=== PATIENT | male | born 1950 | race Caucasian/White ===

== ENCOUNTER 2018-02-26 09:13 | Emergency (ER) | payer OTHER, MEDICARE ==
[2018-02-26] MEDS ORDERED: SODIUM CHLORIDE 0.9% 500 ML INFUS.BAG IV ONE (10:15)
--- NOTE | 2018-02-26 10:15 | PDOC ---
History of Present Illness <Pauline Cruz Jose R - Last Filed: 02/26/18 12:45> - General History Source: Patient, Family Exam Limitations: No Limitations - History of Present Illness Initial Comments: 02/26/18 10:25 The patient is a 67 year old male, with a significant past medical history of hypertension, hyperlipidemia, and gout, who presents to the emergency department with a rash for approximately 10 days. The patient reports he initially broke out with a rash in his upper extremity, which resolved on its own 3 days later. However, about 1 week ago he developed a diffuse rash, which progressed to painful blisters. The patient reports associated joint swelling and pain. Patient states his joint pain is similar to his previous gout symptoms , but states he has not had this pain in a long time. Patient endorses weakness secondary to joint pain and states he has difficulty getting out of bed, which prompted his visit today. He reports the rash is painful and pruritic.Patient reports visiting his PCP, Dr. Lindo, who started him on Augmentin 3 days ago. Patient reports missing his Augmentin dose today. He reports subjective fevers and nasal congestion, but denies any associated chills, cough, headache, or dizziness. He denies any abdominal pain, nausea, or vomiting. He denies any chest pain, shortness of breath, diaphoresis, or palpitations. He denies any recent travel or sick contacts. He denies any new medications in the past couple of weeks. Allergies: NKDA Past Surgical History: None reported Social History: 2 drinks per day. No tobacco or recreational drug use. PCP: Dr. Lindo <Jg Tong - Last Filed: 02/26/18 12:50> - General Chief Complaint: Rash Stated Complaint: rash/joint swelling Time Seen by Provider: 02/26/18 09:32 Past History <Pauline Cruz - Last Filed: 02/26/18 12:45> <Jg Tong - Last Filed: 02/26/18 12:50> - Past Medical History Allergies/Adverse Reactions: Allergies Allergy/AdvReac Type Severity Reaction Status Date / Time No Known Drug Allergies Allergy Verified 02/26/18 10:13 Review of Systems - Review of Systems Able to Perform ROS?: Yes Comments:: 02/26/18 10:25 GENERAL/CONSTITUTIONAL: No chills. no sweats. +subjective fevers, +weakness HEAD, EYES, EARS, NOSE AND THROAT: No change in vision or hearing. No ear pain or discharge. No difficulty swallowing.. +nasal congestion and mouth pain/oral lesions CARDIOVASCULAR: No chest pain or palpitations, syncope or edema. RESPIRATORY: No SOB, cough, wheezing, or hemoptysis. GASTROINTESTINAL No nausea/vomiting. No diarrhea or constipation. No bloody stools. GENITOURINARY: No hematuria, dysuria, frequency, urgency or other changes. MUSCULOSKELETAL: No neck or back pain. +arthralgias and myalgias, +joint swelling SKIN: +skin rash, blisters and multiple lesions NEUROLOGIC: No headache, vertigo, loss of consciousness, or change in strength/ sensation. No gait instability. ENDOCRINE: No increased thirst. No abnormal weight or appetite change or intolerance to heat/cold. HEMATOLOGIC/LYMPHATIC: No anemia, easy bruising/bleeding, or history of blood clots. ALLERGIC/IMMUNOLOGIC: No hives or skin allergy. All other systems reviewed and negative, or as documented in HPI. <Jg Tong - Last Filed: 02/26/18 12:50> *Physical Exam - Physical Exam Comments: 02/26/18 10:25 General: Well appearing, awake and alert, NAD. HEENT: NCAT, PERRL, EOMI, clear conjunctiva, anicteric, moist mucus membranes, normal phonation. +3 small yellow ulcers over tongue. Neck: neck supple, FROM, no JVD, LAD or masses Lungs: CTAB, normal and even respirations, no respiratory distress Heart: RRR, 2+ peripheral pulses throughout, no peripheral edema Abdomen: soft, NTND, no peritoneal signs. : normal external genitalia, no scrotal or testicular swelling, no lesions Back: nontender, normal inspection and ROM MSK: 3+ pitting pretibial edema, WILSON x4, ROM intact. No clubbing or cyanosis. normal bulk and tone. +diffuse joint tenderness and swelling, particularly over bilateral ankles and hands/wrists. Neuro: alert, oriented appropriately; no focal neurologic deficits. SILT, 5/5 distal and prox strength in all extrem. Skin: warm and well perfused, cap refill <2 sec, normal color; Multiple diffuse and raised, violaceous papular rash with tense blisters, some open and crusted, some remain closed and tense, extending over scalp, neck, chest, torso, back, BUE and BLE, scant faint pink lesions over thenar eminence of palms. Negative Nikolskys sign. <Jg Tong - Last Filed: 02/26/18 12:50> ED Treatment Course - LABORATORY CBC & Chemistry Diagram: 02/26/18 10:32 02/26/18 10:32 - RADIOLOGY Radiology Studies Ordered: Category Date Time Status CHEST X-RAY PORTABLE* [RAD] Stat Radiology 02/26/18 09:24 Ordered <NancyPauline Odell - Last Filed: 02/26/18 12:45> - LABORATORY CBC & Chemistry Diagram: 02/26/18 10:32 02/26/18 10:32 <Jg Tong - Last Filed: 02/26/18 12:50> Medical Decision Making - Critical Care Time Total Critical Care Time (minutes): 60 (severe sepsis, hypotension) Critical Care Statement: The care of this patient involved high complexity decision making to prevent further life threatening deterioration of the patient 's condition and/or to evaluate & treat vital organ system(s) failure or risk of failure. - Medical Decision Making 02/26/18 10:08 67 year old male, with a significant past medical history of hypertension, hyperlipidemia, and gout, who presents to the emergency department with a rash x 10 days, intermittent, initially resolving, now returned x 1 week a/w myalgias and arthralgias and Low grade fevers. on augmentin x 3 days, after onset of rash. no other symptoms or new medications. no travel or new exposures. no h/o CAD, DM. Vital signs reviewed, hypotensive, mildly tachy - will given empiric abx and IVF. Plan: CBC, CMP, UA, urine cx, blood cx, lactic acid, ESR, CRP, ECG, trops/card panel, CXR DDx. allergic reaction, hypersensitivity reaction, hives/urticaria. drug rash. dermatitis. serum sickness. vasculitis. Bullous pemphigoid, pemphigoid vulgaris , Kaposi's sarcoma, disseminated herpes. -No fevers, clinically well appearing except for some systemic findings, joint involvement, swelling and pain with diffuse bullous violaceous rash, +some mucosal involvement so considered SJS/TEN but doubt with rash appearance. airway patent, diffuse bullous rash and blistering with varying degrees of appearance (some open, some closed, neg for Nikolsky's), infectious vs inflammatory vs. immune. Possibly viral vs bacterial, considering autoimmune skin condition, -empirically covered for systemic infection with vancomycin/zosyn. Infectious workup including Blood cx, inflammatory markers. ID consultation with Dr. Paulino , as per request of PMD Dr. Lindo, who I spoke over the phone regarding patient's care. - spoke with Dr. Galeano, ID online facilitator for group, agree with plan and pt does require more specialty care. laboratory results and imaging reviewed, basic labs and lytes and lactic notable for significant leukocytosis of 28K with neutrophilic predominance, + lactic acidosis - BP improving with fluids. +acute renal insufficiency with Cr to 4 (new from prior results), but lytes wnl including glucose. Interventions: IV solumedrol 125mg x1, IVF 2 liters. pain controlled, no analgesia given. zosyn/vancomycin Dispo: Transfer to higher level of care, for additional subspecialty care, including derm and burn eval, for biopsy and culture and extensive wound care with diffuse blistering rash, medicine evaluation- spoke with trauma attg, Dr. Schmitt at [facility], spoke with also Dr. Veliz from [facility], declined admit due to lack of dermatology cs available there. - Transfer to [facility], d/w Dr Carpenter in ED for transfer for admit, consultation and definitive care. Discussed results and management plan with pt and family member at bedside, agree with impression and plan, forms and consents signed for transport 02/26/18 12:47 <Pauline Cruz - Last Filed: 02/26/18 12:45> *DC/Admit/Observation/Transfer - Discharge Dispostion Decision to Admit order: Yes - Transfer to Acute Care Facility Receiving Facility: [facility] Accepting Physician:: Dr. Carpenter, [facility] ED <Pauline Cruz - Last Filed: 02/26/18 12:45> - Attestations Scribe Attestion: 02/26/18 10:26 Documentation prepared by Jg Tong, acting as clinical medical transcriptionist for Pauline Cruz MD. <Jg Tong - Last Filed: 02/26/18 12:50> Diagnosis at time of Disposition: Sepsis affecting skin, DENISE (acute kidney injury), Lactic acidosis, Severe sepsis Hypotension Qualifiers: Hypotension type: unspecified hypotension type Qualified Code(s): I95.9 - Hypotension, unspecified - Discharge Dispostion Disposition: TRANSFER ACUTE CARE/OTHER HOSP Condition at time of disposition: Fair - Referrals Referrals: Jono Lin MD [Staff Physician] - - Patient Instructions - Post Discharge Activity
[2018-02-26] MEDS ORDERED: SODIUM CHLORIDE 1,000 ML IV STA (10:16)
[2018-02-26] MEDS ORDERED: VANCOMYCIN 1,500 MG in DEXTROSE 5%-WATER - 250 ML IVPB ONE (10:17)
[2018-02-26] MEDS ORDERED: methylPREDNISolone NA SUCC 125 MG/2 ML VIAL IVPUSH ONE (10:30)
[2018-02-26] MEDS ORDERED: PIPERACILLIN/TAZOB 4.5 GM 4.5 GM in DEXTROSE 5%-WATER 100 ML IVPB ONE (10:30)
[2018-02-26 10:59] LABS: BASO % 0.2 % (0-2.0); EOS % 0.3 % (0-4.5); HEMATOCRIT 28.7 % (35.4-49); HEMOGLOBIN 9.7 GM/dL (11.7-16.9); MCH 36.5 pg (25.7-33.7); MCHC 33.8 g/dl (32.0-35.9); MEAN CELL VOLUME 108.1 fl (80-96); MEAN PLT VOLUME 8.8 fl (7.5-11.1); MONO % 1.6 % (3.8-10.2); NEUT % 95.9 % (42.8-82.8); PLATELET COUNT 227 K/MM3 (134-434); RBC 2.65 M/mm3 (4.00-5.60); WHITE BLOOD COUNT 28.3 K/mm3 (4.0-10.0)
[2018-02-26 11:07] LABS: VENOUS PC02 27.7 mmHg (38-52); VENOUS PH 7.31 (7.32-7.42); VENOUS PO2 61.4 mmHg (28-48)
[2018-02-26 11:10] LABS: INR 1.25 (0.82-1.09); PROTHROMBIN TIME (PATIENT) 14.1 SEC (9.7-13.0)
[2018-02-26 11:13] LABS: ACTIVATED PTT 25.1 SECONDS (25.2-36.5)
[2018-02-26 11:17] VITALS: BMI 29.4
[2018-02-26] MEDS ORDERED: VANCOMYCIN 1 GRAM (PRE-DOCKED) 1,000 MG/250 ML BAG IVPB ONE (11:21)
[2018-02-26] MEDS ORDERED: PIPERACILLIN/TAZOB 4.5 GM 4.5 GM/100 ML BAG IVPB ONE (11:21)
[2018-02-26] MEDS ORDERED: methylPREDNISolone NA SUCC 125 MG/2 ML VIAL ONE (11:22)
[2018-02-26 11:33] LABS: ALBUMIN 2.7 g/dl (3.4-5.0); ANION GAP 15 (8-16); BILIRUBIN,TOTAL 0.3 mg/dL (0.2-1.0); BLOOD UREA NITROGEN 74 mg/dL (7-18); CALCIUM 9.5 mg/dL (8.5-10.1); CHLORIDE 105 mmol/L (98-107); CO2 15 mmol/L (21-32); GLUCOSE,RANDOM 117 mg/dL (74-106); SGPT/ALT 22 U/L (12-78); SODIUM 135 mmol/L (136-145); TOT PROT 7.5 g/dl (6.4-8.2)
[2018-02-26 11:34] LABS: ALK PHOS 68 U/L (45-117)
[2018-02-26 11:35] LABS: POTASSIUM 5.4 mmol/L (3.5-5.1); SGOT/AST 41 U/L (15-37)
[2018-02-26 11:48] VITALS: BP 108/55; PULSE 91; TEMP 97.8
[2018-02-26 12:38] LABS: PLATELET ESTIMATE NORMAL; ROULEAU 1+; TEAR DROP CELLS 1+
[2018-02-26] MEDS ORDERED: VANCOMYCIN 1,500 MG in DEXTROSE 5%-WATER - 500 ML IVPB ONE (12:45)
--- NOTE | 2018-02-26 14:41 | EKG ---
Test Reason : Blood Pressure : / mmHG Vent. Rate : 091 BPM Atrial Rate : 091 BPM P-R Int : 158 ms QRS Dur : 086 ms QT Int : 350 ms P-R-T Axes : 040 037 001 degrees QTc Int : 430 ms POOR DATA QUALITY, INTERPRETATION MAY BE ADVERSELY AFFECTED NORMAL SINUS RHYTHM NORMAL ECG NO PREVIOUS ECGS AVAILABLE Confirmed by Irvin Gomez ([id number]) on 02/26/2018 2:40:45 PM Referred By: Confirmed By:Irvin Gomez
== END 2018-02-26 14:30 | disposition short-term general hospital (02) ==
LOC: JER 09:13
PROC: 3E03329 Introduction of Other Anti-infective into Peripheral Vein, Percutaneous Approach (ICD-10-PCS; principal; 2018-02-26)
PROC: 3E03329 Introduction of Other Anti-infective into Peripheral Vein, Percutaneous Approach (ICD-10-PCS; 2018-02-26)
PROC: 3E0333Z Introduction of Anti-inflammatory into Peripheral Vein, Percutaneous Approach (ICD-10-PCS; 2018-02-26)
DX: A41.9 Sepsis, unspecified organism (principal); E87.2 Acidosis; I95.9 Hypotension, unspecified; N17.9 Acute kidney failure, unspecified; R60.0 Localized edema
CPT/HCPCS: 36415; 71045-TC-FY; 80053; 82803; 83605; 84484; 85025; 85610; 85651; 85730; 86140; 87040; 87389; 93005; 93010; 96361; 96365; 96367; 96375; 99281-25; J7030